=== PATIENT | female | born 1980 | race Caucasian/White ===

== ENCOUNTER 2017-01-01 11:01 | Emergency (ER) | payer MEDICAID ==
[~2017-01-01] VITALS: Ht 149.9 cm; Wt 33.0 kg
[~2017-01-01 11:01] MED LIST: IBUP800T PO; METH750T87 PO; NITR100C57 PO; OMEP-110 PO; OXYC-302 PO
[2017-01-01] MEDS ORDERED: ONDANSETRON 2MG/ML, 2ML IVPush ONE (12:00)
[2017-01-01] MEDS ORDERED: SODIUM CHLORIDE 0.9% 1,000ML IVBOLUS ONE (12:00)
[2017-01-01] MEDS ORDERED: SODIUM CHLORIDE FLUSH 10ML SYR IVF ONE (12:00)
[2017-01-01] MEDS ORDERED: ONDANSETRON 2MG/ML, 2ML ONE (12:11)
[2017-01-01 12:16] LABS: BLOOD UREA NITROGEN 11 mg/dL (7-18)
[2017-01-01 13:13] VITALS: BP 127/69
== END 2017-01-01 13:16 | disposition home or self-care (01) ==
LOC: ED 13:10
DX: R53.1 Weakness (principal); N30.01 Acute cystitis with hematuria; F17.200 Nicotine dependence, unspecified, uncomplicated; N12 Tubulo-interstitial nephritis, not specified as acute or chronic
CPT/HCPCS: 36415; 80048; 81001; 82040; 84439; 84443; 84703; 85025; 87077; 87086; 87186; 93005; 96361; 96374; 99285; J2405; J7030

== ENCOUNTER 2017-07-31 19:15 | Emergency (ER) | payer SELFPAY ==
[~2017-07-31] VITALS: Ht 152.4 cm; Wt 38.0 kg
[~2017-07-31 19:15] MED LIST changes: +IBUP-1223 PO; -IBUP800T PO
[2017-07-31 19:42] VITALS: BP 105/64
[2017-07-31 20:10] LABS: BASOPHILS # (AUTO) 0.02 x10^3/uL (0-0.1); BASOPHILS % (AUTO) 0 % (0-1); EOSINOPHILS # (AUTO) 0.07 x10^3/uL (0-0.4); EOSINOPHILS % (AUTO) 1 % (1-7); LYMPHOCYTES # (AUTO) 1.66 x10^3/uL (1-3.4); LYMPHOCYTES % (AUTO) 23 % (22-44); MD NO; MEAN CORPUSCULAR HEMOGLOBIN 28.4 pg (27.0-34.8); MEAN CORPUSCULAR HGB CONC 31.6 g/dL (32.4-35.8); MEAN CORPUSCULAR VOLUME 89.8 fL (80-100); MEAN PLATELET VOLUME 8.5 fL (7.4-10.4); MONOCYTES # (AUTO) 0.44 x10^3/uL (0.2-0.8); MONOCYTES % (AUTO) 6 % (2-9); NEUTROPHILS % (AUTO) 70 % (42-75); PLATELET COUNT 348 x10^3/uL (130-400); RED BLOOD COUNT 4.29 x10^6/uL (3.82-5.3); RED CELL DISTRIBUTION WIDTH 14.8 % (9.6-15.2)
[2017-07-31 20:20] LABS: ALBUMIN 4.2 g/dL (3.4-5.0); ANION GAP 6 mmol/L (5-15); CALCIUM 8.8 mg/dL (8.5-10.1); CHLORIDE 108 mmol/L (98-107)
[2017-07-31 20:26] LABS: ALANINE AMINOTRANSFERASE 19 U/L (12-78); ALKALINE PHOSPHATASE 75 U/L (45-117); BILIRUBIN,TOTAL 0.7 mg/dL (0.2-1.0); CREATININE 0.81 mg/dL (0.55-1.02); TOTAL PROTEIN 7.7 g/dL (6.4-8.2)
[2017-07-31 20:45] LABS: MICROSCOPIC INDICATED
[2017-07-31 20:55] LABS: CULTURE INDICATED? NO
== END 2017-07-31 22:13 | disposition home or self-care (01) ==
LOC: ED 21:22
DX: R10.9 Unspecified abdominal pain (principal); R33.9 Retention of urine, unspecified; R39.15 Urgency of urination; K21.9 Gastro-esophageal reflux disease without esophagitis
CPT/HCPCS: 36415; 80053; 81001; 83690; 84703; 85025; 99284

== ENCOUNTER 2019-10-02 10:17 | Emergency (ER) | payer MEDICAID, OTHER ==
[~2019-10-02] VITALS: Ht 149.9 cm; Wt 33.8 kg
--- NOTE | 2019-10-02 10:54 | NUR ---
PT WITH GEN BODY ACHES X 2 DAYS AND RPTS ONSET OF EPIGASTIRD SUBSTERNAL PAIN SINCE 09/29, PAIN INCREASES WHEN LAYING DOWN, MOVEMENT, DEEP BREATHING. PT VSS, CALL LIGHT W/I REACH. PENDING ER PROVIDER TED.
[2019-10-02] MEDS ORDERED: MAALOX/HYOSCYAMINE/LIDOCAINE 45 ML BTL ONE (11:47)
[2019-10-02] MEDS ORDERED: ONDANSETRON ODT 4 MG ONE (11:47)
[2019-10-02] MEDS ORDERED: KETOROLAC 30 MG/1 ML ONE (11:47)
--- NOTE | 2019-10-02 11:54 | NUR ---
PT OOB AND AMBULATED TO BATHROOM, UPRIGHT STEADY GAIT. URINE SAMPLE COLLECTED AND SENT TO LAB. PT MED NOTED. CALL LIGHT W/I REACH.
--- NOTE | 2019-10-02 11:55 | NUR ---
PT REQUESTS TO HAVE CXR AFTER RESULTS FROM TEST ARE REC'D.
[2019-10-02] MEDS ORDERED: ONDANSETRON ODT 4 MG PO ONE (12:00)
[2019-10-02] MEDS ORDERED: MAALOX/HYOSCYAMINE/LIDOCAINE 45 ML BTL PO ONE (12:00)
[2019-10-02] MEDS ORDERED: KETOROLAC 30 MG/1 ML IM ONE (12:00)
[2019-10-02 12:11] LABS: BASOPHILS # (AUTO) 0.01 x10^3/uL (0-0.1); BASOPHILS % (AUTO) 0 % (0-1); EOSINOPHILS % (AUTO) 0 % (1-7); LYMPHOCYTES # (AUTO) 0.51 x10^3/uL (1-3.4); LYMPHOCYTES % (AUTO) 5 % (22-44); MD NO; MEAN CORPUSCULAR HEMOGLOBIN 30.9 pg (27.0-34.8); MEAN CORPUSCULAR HGB CONC 33.3 g/dL (32.4-35.8); MEAN CORPUSCULAR VOLUME 92.8 fL (80-100); MEAN PLATELET VOLUME 8.6 fL (7.4-10.4); MONOCYTES # (AUTO) 0.77 x10^3/uL (0.2-0.8); MONOCYTES % (AUTO) 8 % (2-9); NEUTROPHILS # (AUTO) 8.38 x10^3/uL (1.8-6.8); NEUTROPHILS % (AUTO) 87 % (42-75); PLATELET COUNT 250 x10^3/uL (130-400); RED BLOOD COUNT 4.53 x10^6/uL (3.82-5.3); RED CELL DISTRIBUTION WIDTH 13.9 % (9.6-15.2)
[2019-10-02 12:19] LABS: CULTURE INDICATED? YES; MICROSCOPIC INDICATED
[2019-10-02 12:21] LABS: ALANINE AMINOTRANSFERASE 12 U/L (12-78); ALBUMIN 3.7 g/dL (3.4-5.0); ANION GAP 9 mmol/L (5-15); CALCIUM 9.1 mg/dL (8.5-10.1); CHLORIDE 106 mmol/L (98-107); CREATININE 1.13 mg/dL (0.55-1.02)
[2019-10-02 12:26] LABS: ALKALINE PHOSPHATASE 72 U/L (45-117); BILIRUBIN,TOTAL 1.5 mg/dL (0.2-1.0); TOTAL PROTEIN 8.3 g/dL (6.4-8.2); TROPONIN I < 0.015 ng/mL (0.000-0.045)
--- NOTE | 2019-10-02 12:26 | NUR ---
PT DENIES ANY PAIN AT THIS TIME. HCG RESULT STILL PENDING.
[2019-10-02] MEDS ORDERED: CEFTRIAXONE 1,000 MG ONE (13:56)
[2019-10-02] MEDS ORDERED: LIDOCAINE-MPF 1%, 5ML ONE (13:56)
[2019-10-02] MEDS ORDERED: CEFTRIAXONE 1,000 MG IM ONE (14:00)
[2019-10-02 14:48] VITALS: BP 99/69
--- NOTE | 2019-10-02 14:49 | NUR ---
Patient/Caregiver given discharge instructions and they have confirmed that they understand the instructions. Patient ambulatory with steady gait.
== END 2019-10-02 15:07 | disposition home or self-care (01) ==
LOC: ED 15:02
DX: N30.00 Acute cystitis without hematuria (principal); K21.9 Gastro-esophageal reflux disease without esophagitis; R94.31 Abnormal electrocardiogram [ECG] [EKG]
CPT/HCPCS: 36415; 71045; 80053; 81001; 83690; 84484; 84703; 85025; 87077; 87086; 87186; 93005; 96372; 99285; J0696; J1885; Q0162; 99284